=== PATIENT | female | born 1955 | race African-American/Black ===

== ENCOUNTER 2016-12-22 10:50 | Inpatient (IN) ==
--- NOTE | 2016-12-22 14:21 | Internal Med History&Physical ---
Date of Encounter: 12/22/16 Time of Encounter: 14:19 Assessment and Plan (1) History of total right hip arthroplasty Current visit: Yes Status: Acute Patient's here for rehabilitation status post right hip replacement due to O Internal Medicine - H&P: HPI Chief complaint: Patient status post right total hip History of present illness: Ms. Stinson is a 61 year old female Past Med Surg Social Fam HX - Past Medical History Psychiatric history: anxiety, depression - Past Surgical History Surgical History: hysterectomy - Social History Smoking Status: Former smoker Smokeless Tobacco Status: No Alcohol use: occasionally Drug use: none - Family History Mother Living Status: Hx Family Cancer: Yes (lymph node ca) Internal Medicine - H&P: Meds Aripiprazole [Abilify] 5 mg PO DAILY 12/19/16 [History] Aspirin Enteric Coated [Aspirin EC] 325 mg PO DAILY #21 tablet. 12/19/16 [Rx] Cholecalciferol (D-3) [Vitamin D] 1,000 unit PO DAILY 12/19/16 [History] Duloxetine [Cymbalta] 30 mg PO BID 12/19/16 [History] Hydrochlorothiazide 25 mg PO DAILY 12/19/16 [History] Lovastatin [Mevacor] 20 mg PO HS 12/19/16 [History] OxyCODONE Immed Rel [Roxicodone 5 MG] 5 - 10 mg PO Q6HR PRN #40 tablet 12/19/16 [Rx] OxyCODONE/APAP 10/325 [Percocet 10/325 MG] 1 each PO Q6HR PRN 12/19/16 [History] Allergies latex Adverse Reaction (Verified 12/19/16 14:10) Rash All Systems PM: A 10-system review of systems was performed and is negative for pertinent findings except as documented above in the HPI. - Constitutional Vitals: Temp Pulse Resp BP Pulse Ox 99.1 F 85 16 104/60 95 12/22/16 11:02 12/22/16 11:02 12/22/16 11:02 12/22/16 11:02 12/22/16 11:02 Internal Med - H&P Results - Labs Labs: Lab pending
[2016-12-22] MEDS: *HR* OxyCODONE Immed Rel 5 MG TABLET PO PRN ×2 (15:55→22:41)
[2016-12-22] MEDS: MOM Conc 10 ML UD.LIQ PO PRN (20:39)
[2016-12-23] MEDS: *HR* OxyCODONE Immed Rel 5 MG TABLET PO PRN ×3 (04:36→22:04)
[2016-12-23 04:59] LABS: INR 1.3; Prothrombin Time 13.7 Seconds (9.4-12.1)
[2016-12-23 05:02] LABS: Activated Partial Thrombo Time 29.9 Seconds (26.0-36.0)
[2016-12-23 05:03] LABS: Basophils # 0.1 K/mcL (0.0-0.2); Basophils % 0.7 %; Eosinophils # 0.3 K/mcL (0.0-0.6); Eosinophils % 3.1 %; Hematocrit 28.9 % (35.3-44.9); Hemoglobin 9.8 g/dL (11.5-15.4); Immature Granulocytes % 0.7 % (0-4); Lymphocytes % 27.7 %; Mean Corpuscular HGB Conc 33.9 g/dL (31.6-35.5); Mean Corpuscular Hemoglobin 33.3 pg (28.0-33.3); Mean Corpuscular Volume 98.3 fL (83.0-100.0); Mean Platelet Volume 10.1 fL (9.4-12.4); Neutrophils # 6.3 K/mcL (1.6-8.9); Nucleated Red Blood Cells 1.2 /100 WBC (0); Platelet Count 263 K/mcL (140-400); Red Blood Count 2.94 M/mcL (3.82-4.97); Red Cell Distribution Width 13.2 % (11.5-14.5); Segmented Neutrophils % 58.8 %
[2016-12-23 05:09] LABS: BUN/Creatinine Ratio 13 (6-26); Blood Urea Nitrogen 8 mg/dL (7-20); Calcium 9.1 mg/dL (8.6-10.8); Carbon Dioxide 29 mEq/L (19-29); Chloride 94 mEq/L (98-109); Glucose 125 mg/dL (70-99); Osmolality,Calculated 282 (280-300); Potassium 3.6 mEq/L (3.5-4.5); Sodium 136 mEq/L (136-145); eGFR For African Americans > 60 (> 60); eGFR For Non-African Americans > 60 (> 60)
[2016-12-23] MEDS: Aspirin Enteric Coated 325 MG Tablet PO SCH (08:20)
[2016-12-23] MEDS: Cholecalciferol (D-3) 1,000 UNIT TABLET PO SCH (08:20)
[2016-12-23] MEDS: ARIPiprazole 5 MG TABLET PO SCH (08:20)
[2016-12-23] MEDS: hydroCHLOROthiazide 25 MG TABLET PO SCH (08:20)
--- NOTE | 2016-12-23 13:08 | Internal Med Progress Note ---
Date of Encounter: 12/23/16 Time of Encounter: 13:07 - Assessment and plan (1) History of total right hip arthroplasty Current Visit: Yes Status: Acute Assessment and plan: Patient's here for rehabilitation for total right hip repair - Time Spent With Patient less than 15 minutes - Subjective Interval history: Patient's working with therapy and she had a little decrease in her O2 sat. System 2 L nasal cannula. No other complaints except that is painful - Constitutional Vitals: Temp Pulse Resp BP Pulse Ox 97.7 F 74 18 135/75 96 12/23/16 12:12 12/23/16 12:12 12/23/16 12:12 12/23/16 12:12 12/23/16 12:12 - Head Head exam: Present: normal inspection - Neck Neck exam general surgery: Present: supple, trachea midline. Absent: lymphadenopathy - Respiratory Respiratory exam: Present: CTAB. Absent: accessory muscle use, rales, rhonchi, wheezes - Cardiovascular Cardiovascular exam: Present: RRR, +S1, +S2. Absent: diastolic murmur, gallop, rubs, systolic murmur Internal Medicine: Result - Labs CBC & Chem 7: 12/23/16 04:47 12/23/16 04:47 Labs: Short CBC 12/23/16 Range/Units 04:47 WBC 10.8 (4.3-11.1) K/mcL Hgb 9.8 L (11.5-15.4) g/dL Hct 28.9 L (35.3-44.9) % Plt Count 263 (140-400) K/mcL Neutrophils # 6.3 (1.6-8.9) K/mcL BMP 12/23/16 04:47 Sodium 136 Potassium 3.6 Chloride 94 L Carbon Dioxide 29 BUN 8 Creatinine 0.63 Glucose 125 H Calcium 9.1 Lab is stable - ABG Interpretation ABG results: PT/INR, D-dimer PT 13.7 Seconds (9.4-12.1) H 12/23/16 04:47 Consult Discharge Plan - Plan Referrals: Jacky Guerrero DO [Primary Care Provider] -
[2016-12-23] MEDS: MOM Conc 10 ML UD.LIQ PO PRN (22:05)
[2016-12-24] MEDS: *HR* OxyCODONE Immed Rel 5 MG TABLET PO PRN ×3 (05:03→20:05)
[2016-12-24] MEDS: hydroCHLOROthiazide 25 MG TABLET PO SCH (09:51)
[2016-12-24] MEDS: Cholecalciferol (D-3) 1,000 UNIT TABLET PO SCH (09:51)
[2016-12-24] MEDS: ARIPiprazole 5 MG TABLET PO SCH (09:51)
[2016-12-24] MEDS: Aspirin Enteric Coated 325 MG Tablet PO SCH (09:51)
[2016-12-24] MEDS: MOM Conc 10 ML UD.LIQ PO PRN (09:51)
--- NOTE | 2016-12-24 14:24 | Internal Med Progress Note ---
Date of Encounter: 12/24/16 Time of Encounter: 14:22 - Assessment and plan (1) S/P hip replacement Current Visit: Yes Status: Acute Assessment and plan: PT and OT working on gait, transfer him of balance. Doing well. Pain under control. Qualifiers: Laterality: right Qualified Code(s): Z96.641 - Presence of right artificial hip joint - Time Spent With Patient less than 15 minutes - Subjective Interval history: Mild right hip postop pain. No shortness of breath. No chest pain. No nausea vomiting. Good oral intake. - Constitutional Vitals: Temp Pulse Resp BP Pulse Ox 98.4 F 77 20 100/68 94 12/24/16 06:53 12/24/16 06:53 12/24/16 06:53 12/24/16 06:53 12/24/16 06:53 General appearance: Present: A&O X 3, pleasant, no acute distress - Respiratory Respiratory exam: Present: CTAB. Absent: accessory muscle use, rales, rhonchi, wheezes - Cardiovascular Cardiovascular exam: Present: RRR, +S1, +S2. Absent: diastolic murmur, gallop, rubs, systolic murmur - GI/Abdominal GI/Abdominal exam: Present: normal bowel sounds, soft, no peritoneal signs. Absent: distended, tenderness - Expanded Lower Extremities Exam Hip exam: Present: ecchymosis, swelling, tenderness - Incison Incision: Present: clean and dry - Neurological Exam Neurological exam: Present: CN II-XII intact, oriented X3, no focal deficits. Absent: pronater drift, facial droop, speech deficit Internal Medicine: Result - Labs CBC & Chem 7: 12/23/16 04:47 12/23/16 04:47 - ABG Interpretation ABG results: PT/INR, D-dimer PT 13.7 Seconds (9.4-12.1) H 12/23/16 04:47 - Impressions Impressions Chest X-Ray 12/24/16 06:12 IMPRESSION: No evidence of acute disease. D/ / Rudi Swartz MD / Rudi Swartz MD Interpreting Provider: Rudi Swartz MD Consult Discharge Plan - Plan Referrals: Jacky Guerrero DO [Primary Care Provider] -
[2016-12-25] MEDS: MOM Conc 10 ML UD.LIQ PO PRN (08:30)
[2016-12-25] MEDS: hydroCHLOROthiazide 25 MG TABLET PO SCH (08:30)
[2016-12-25] MEDS: *HR* OxyCODONE Immed Rel 5 MG TABLET PO PRN ×3 (08:30→20:41)
[2016-12-25] MEDS: ARIPiprazole 5 MG TABLET PO SCH (08:31)
[2016-12-25] MEDS: Aspirin Enteric Coated 325 MG Tablet PO SCH (08:31)
[2016-12-25] MEDS: Cholecalciferol (D-3) 1,000 UNIT TABLET PO SCH (08:31)
[2016-12-26] MEDS: *HR* OxyCODONE Immed Rel 5 MG TABLET PO PRN ×3 (06:08→20:13)
[2016-12-26 06:10] LABS: Basophils # 0.1 K/mcL (0.0-0.2); Basophils % 0.9 %; Eosinophils # 0.5 K/mcL (0.0-0.6); Eosinophils % 6.1 %; Hematocrit 28.5 % (35.3-44.9); Hemoglobin 9.5 g/dL (11.5-15.4); Immature Granulocytes % 0.9 % (0-4); Lymphocytes # 2.3 K/mcL (0.6-4.6); Lymphocytes % 27.1 %; Mean Corpuscular HGB Conc 33.3 g/dL (31.6-35.5); Mean Platelet Volume 9.5 fL (9.4-12.4); Monocytes # 0.9 K/mcL (0.0-1.3); Monocytes % 10.4 %; Neutrophils # 4.7 K/mcL (1.6-8.9); Nucleated Red Blood Cells 0.9 /100 WBC (0); Platelet Count 392 K/mcL (140-400); Red Blood Count 2.88 M/mcL (3.82-4.97); Red Cell Distribution Width 13.2 % (11.5-14.5); Segmented Neutrophils % 54.6 %
[2016-12-26 06:11] LABS: INR 1.2; Prothrombin Time 12.9 Seconds (9.4-12.1)
[2016-12-26 06:12] LABS: BUN/Creatinine Ratio 14 (6-26); Blood Urea Nitrogen 9 mg/dL (7-20); Calcium 9.2 mg/dL (8.6-10.8); Carbon Dioxide 31 mEq/L (19-29); Chloride 96 mEq/L (98-109); Glucose 103 mg/dL (70-99); Osmolality,Calculated 285 (280-300); Potassium 3.6 mEq/L (3.5-4.5); Sodium 138 mEq/L (136-145); eGFR For African Americans > 60 (> 60); eGFR For Non-African Americans > 60 (> 60)
[2016-12-26 06:13] LABS: Activated Partial Thrombo Time 32.8 Seconds (26.0-36.0)
[2016-12-26] MEDS: Cholecalciferol (D-3) 1,000 UNIT TABLET PO SCH (09:39)
[2016-12-26] MEDS: ARIPiprazole 5 MG TABLET PO SCH (09:39)
[2016-12-26] MEDS: Aspirin Enteric Coated 325 MG Tablet PO SCH (09:39)
[2016-12-26] MEDS: hydroCHLOROthiazide 25 MG TABLET PO SCH (09:39)
--- NOTE | 2016-12-26 14:23 | Internal Med Progress Note ---
Date of Encounter: 12/26/16 Time of Encounter: 14:20 - Assessment and plan (1) History of total right hip arthroplasty Current Visit: Yes Status: Acute Assessment and plan: Hip surgery is healing she is doing her therapy doing well. - Time Spent With Patient less than 15 minutes - Subjective Interval history: Patient's probably back to baseline now and the family has elected ECF. We will transfer her bed available - Constitutional Vitals: Temp Pulse Resp BP Pulse Ox 97.7 F 65 16 108/70 94 12/26/16 06:40 12/26/16 12:46 12/26/16 12:46 12/26/16 12:46 12/26/16 12:46 General appearance: Present: A&O X 3, pleasant, no acute distress - Head Head exam: Present: atraumatic, normal inspection, normocephalic - Neck Neck exam general surgery: Present: supple, trachea midline. Absent: lymphadenopathy - Respiratory Respiratory exam: Present: CTAB. Absent: accessory muscle use, rales, rhonchi, wheezes - Cardiovascular Cardiovascular exam: Present: RRR, +S1, +S2. Absent: diastolic murmur, gallop, rubs, systolic murmur Internal Medicine: Result - Labs CBC & Chem 7: 12/26/16 05:45 12/26/16 05:45 Labs: Short CBC 12/26/16 Range/Units 05:45 WBC 8.6 (4.3-11.1) K/mcL Hgb 9.5 L (11.5-15.4) g/dL Hct 28.5 L (35.3-44.9) % Plt Count 392 (140-400) K/mcL Neutrophils # 4.7 (1.6-8.9) K/mcL BMP 12/26/16 05:45 Sodium 138 Potassium 3.6 Chloride 96 L Carbon Dioxide 31 H BUN 9 Creatinine 0.65 Glucose 103 H Calcium 9.2 Lab is okay - ABG Interpretation ABG results: PT/INR, D-dimer PT 12.9 Seconds (9.4-12.1) H 12/26/16 05:45 Consult Discharge Plan - Plan Referrals: Jacky Guerrero DO [Primary Care Provider] -
[2016-12-27] MEDS: *HR* OxyCODONE Immed Rel 5 MG TABLET PO PRN ×3 (06:12→15:33)
[2016-12-27] MEDS: ARIPiprazole 5 MG TABLET PO SCH (08:47)
[2016-12-27] MEDS: Aspirin Enteric Coated 325 MG Tablet PO SCH (08:47)
[2016-12-27] MEDS: hydroCHLOROthiazide 25 MG TABLET PO SCH (08:47)
[2016-12-27] MEDS: Cholecalciferol (D-3) 1,000 UNIT TABLET PO SCH (08:47)
--- NOTE | 2016-12-27 13:33 | Internal Med Progress Note ---
Date of Encounter: 12/27/16 Time of Encounter: 13:31 - Assessment and plan (1) History of total right hip arthroplasty Current Visit: Yes Status: Acute Assessment and plan: Patient is here for status post total hip replacement for - Time Spent With Patient less than 15 minutes - Subjective Interval history: Patient is tolerating her therapy. She has no complaints at this time pain is improved slowly - Constitutional Vitals: Temp Pulse Resp BP Pulse Ox 97.3 F L 68 16 115/72 95 12/27/16 07:04 12/27/16 07:04 12/27/16 07:04 12/27/16 07:04 12/27/16 07:04 General appearance: Present: A&O X 3, pleasant, no acute distress - Head Head exam: Present: atraumatic, normal inspection, normocephalic - Neck Neck exam general surgery: Present: supple, trachea midline. Absent: lymphadenopathy - Respiratory Respiratory exam: Present: CTAB. Absent: accessory muscle use, rales, rhonchi, wheezes - Cardiovascular Cardiovascular exam: Present: RRR, +S1, +S2. Absent: diastolic murmur, gallop, rubs, systolic murmur Internal Medicine: Result - Labs CBC & Chem 7: 12/26/16 05:45 12/26/16 05:45 Labs: Lab is stable - ABG Interpretation ABG results: PT/INR, D-dimer PT 12.9 Seconds (9.4-12.1) H 12/26/16 05:45 Consult Discharge Plan - Plan Referrals: jaylyn fields [Other] Richie Barry MD [Partnered Physician] - 01/18/17 5:45 pm (follow up) Brandi Quiñones PAC [Physician Ceramic Tile Setter] - 12/29/16 2:45 pm (follow up) Jacky Guerrero DO [Primary Care Provider] -
[2016-12-27] MEDS: MOM Conc 10 ML UD.LIQ PO PRN (15:34)
[2016-12-28] MEDS: *HR* OxyCODONE Immed Rel 5 MG TABLET PO PRN ×3 (04:50→12:35)
[2016-12-28 08:10] VITALS: BP 115/79
[2016-12-28] MEDS: ARIPiprazole 5 MG TABLET PO SCH (08:13)
[2016-12-28] MEDS: hydroCHLOROthiazide 25 MG TABLET PO SCH (08:13)
[2016-12-28] MEDS: Aspirin Enteric Coated 325 MG Tablet PO SCH (08:13)
[2016-12-28] MEDS: Cholecalciferol (D-3) 1,000 UNIT TABLET PO SCH (08:13)
--- NOTE | 2016-12-28 11:39 | Discharge Summary ---
Date of Encounter: 12/28/16 Time of Encounter: 11:36 - Discharge Diagnosis (1) History of total right hip arthroplasty Priority: Primary Status: Acute Comments: Patient was brought here for rehabilitation status post right hip arthroplasty and is done well - Discharge Medications Home Medications: Aripiprazole [Abilify] 5 mg PO DAILY 12/19/16 [History] Aspirin Enteric Coated [Aspirin EC] 325 mg PO DAILY #21 tablet. 12/19/16 [Rx] Cholecalciferol (D-3) [Vitamin D] 1,000 unit PO DAILY 12/19/16 [History] Duloxetine [Cymbalta] 30 mg PO BID 12/19/16 [History] Hydrochlorothiazide 25 mg PO DAILY 12/19/16 [History] Lovastatin [Mevacor] 20 mg PO HS 12/19/16 [History] OxyCODONE Immed Rel [Roxicodone 5 MG] 5 - 10 mg PO Q6HR PRN #40 tablet 12/19/16 [Rx] OxyCODONE/APAP 10/325 [Percocet 10/325 MG] 1 each PO Q6HR PRN 12/19/16 [History] Allergies/Adverse Reactions: Allergies latex Adverse Reaction (Verified 12/19/16 14:10) Rash Date of admission: 12/22/16 10:51 Primary care physician: Jacky Guerrero DO Consults: 12/22/16 11:58 Consult to Occupational Therapy [CONS] Routine Comment: Evaluate, develop and implement POC Reason for Consult: s/p rth Consult to Physical Medicine/Rehab [CONS] Routine Reason for Consult: s/p rth Call Completed: Yes Consult to Physical Therapy [CONS] Routine Comment: Evaluate, develop and implement POC Reason for Consult: s/p rth Consult to Recreational Therapy [CONS] Routine Comment: Evaluate, develop and implement POC Consult to [employer] Equipment Operator [CONS] Routine Reason for SW Consult: d/c planning. s/p rth Discharging clinician: Jacky Guerrero Anticipated date of discharge: 12/28/16 - Patient Status Disposition: Home Health Service Condition: Good Functional capacity at discharge: uses cane/walker Overall status at discharge: patient is progressing back to baseline - Discharge Instructions Instructions: How to Stop Smoking (DC), Total Hip Replacement (DC) Follow Up With: jaylyn fields [Other] - 01/02/17 1:00 pm Richie Barry MD [Partnered Physician] - 01/18/17 5:45 pm (follow up) Brandi Quiñones PAC [Physician Sports Cartoonist] - 12/29/16 2:45 pm (follow up) Jacky Guerrero DO [Primary Care Provider] - Additional Instructions: Follow-up appointments: If there is not an appointment listed below, please call your physician and schedule a follow-up appointment. If you have congestive heart failure and your symptoms return, make an appointment with your physician. Medication List: Carry an up to date list of medications you are taking at all time. We have given you an updated medication list including any new medications that you have been prescribed. Please provide that list to your primary provider Symptoms: If your condition changes or you experience any of the following symptoms, notify your physician immediately: Unusual or worsening pain, fever, persistent nausea and vomiting, bleeding, increase in swelling (especially in your legs), sudden weight gain, extreme dizziness, chest pain, increased drainage or redness from a wound or incision. Go to the emergency department if you experience a problem with breathing. Weights: If you have a history of swelling or shortness of breath, weigh yourself daily and notify your physician if you have a weight gain of two or more pounds in one day or 5 or more pounds in a week. If you experience any of the warning signs for stroke: Sudden numbness or weakness of the face, arm or leg; especially on one side of the body, sudden confusion, trouble speaking or understanding, sudden trouble seeing in one or both eyes, sudden trouble walking, dizziness, loss of balance or coordination, sudden sever headache with no cause; Call 911 or go to the emergency room. Stroke is a medical emergency. Some risk factors for stroke: Age, cigarette smoking, diabetes, excessive alcohol consumption, family history , high blood pressure, overweight, physical inactivity, prior stroke, heart attack, diagnosis of carotid artery stenosis or other artery disease. If you smoke, STOP: Smoking or tobacco use significantly increases your risk of heart and lung disease. Your chance of disease greatly increases if you continue to smoke. For more information, call the [place] tobacco quit line for smoking cessation QUIT-NOW ( ) - Diet and Activity Activity: ambulate only with your walker Diet: advance to your usual diet Interval History: She was brought to [facility] rehabilitation status post total hip replacement for [facility] course: Ms. Stinson is a 61 year old female Patient has been cooperating with all of her therapist and doing well can do household distances. She will be discharged home today and use home health - Time Spent with Patient Total time spent providing and/or coordinating discharge services: - Constitutional Vitals: Temp Pulse Resp BP Pulse Ox 98.4 F 72 16 115/79 95 12/28/16 07:00 12/28/16 07:00 12/28/16 07:00 12/28/16 07:00 12/28/16 07:00 General appearance: Present: A&O X 3, pleasant, no acute distress - Head Head exam: Present: atraumatic, normal inspection, normocephalic - Neck Neck exam general surgery: Present: supple, trachea midline. Absent: lymphadenopathy - Respiratory Respiratory exam: Present: CTAB. Absent: accessory muscle use, rales, rhonchi, wheezes - Cardiovascular Cardiovascular exam: Present: RRR, +S1, +S2. Absent: diastolic murmur, gallop, rubs, systolic murmur
--- NOTE | 2016-12-28 11:40 | Physician Discharge Referral ---
Home Health/Hosp Referral Info Transfer to: Home Health Provider in Charge Post Discharge: PCP - Diagnosis (1) History of total right hip arthroplasty Priority: Primary Status: Acute - Respiratory Orders Smoking Cessation: Smoking cessation has been advised. For more information, call the [place] Tobacco Quit Line at 6-080-WNMJ-NOW. - Services Needed Following services are medically necessary services: Nursing, Physical Therapy - Transfer Medications Home Medications: Aripiprazole [Abilify] 5 mg PO DAILY 12/19/16 [History] Aspirin Enteric Coated [Aspirin EC] 325 mg PO DAILY #21 tablet. 12/19/16 [Rx] Cholecalciferol (D-3) [Vitamin D] 1,000 unit PO DAILY 12/19/16 [History] Duloxetine [Cymbalta] 30 mg PO BID 12/19/16 [History] Hydrochlorothiazide 25 mg PO DAILY 12/19/16 [History] Lovastatin [Mevacor] 20 mg PO HS 12/19/16 [History] OxyCODONE Immed Rel [Roxicodone 5 MG] 5 - 10 mg PO Q6HR PRN #40 tablet 12/19/16 [Rx] OxyCODONE/APAP 10/325 [Percocet 10/325 MG] 1 each PO Q6HR PRN 12/19/16 [History] Allergies/Adverse Reactions: Allergies latex Adverse Reaction (Verified 12/19/16 14:10) Rash Certification: Further, I certify that my clinical findings support that this patient is homebound (i.e. absences from home require considerable and taxing effort and are for medical reasons or anglican services or infrequently or short duration when for other reasons) because: Homebound Reason: Patient requires assistance of a person or device to safely leave home Attestation: My signature below is to certify that this patient is under my care and that I, or nurse practitioner, or a physician's special education educational assistant working with me, has a face-to -face encounter with this patient.
== END 2016-12-28 14:00 | disposition home health service (06) | DRG 561 ==
LOC: INPGRE 10:51
PROVIDERS: ADMIT Internal Medicine; ATTEND Internal Medicine